=== PATIENT | male | born 1955 | race Caucasian/White ===

== ENCOUNTER 2021-12-16 05:14 | Day surgery (SDC) | payer OTHER ==
[~2021-12-16] VITALS: Ht 172.7 cm; Wt 88.6 kg
[2021-12-16] MEDS ORDERED: LIDOCAINE 4% 50 ML SOLUTION TP ONE (05:15)
[2021-12-16] MEDS ORDERED: LIDOCAINE 2% 5 ML JELLY TP ONE (05:15)
[2021-12-16] MEDS ORDERED: BENZOCAINE 20% 50 MCG/SPRAY 57 GM TP ONE (05:15)
[2021-12-16] MEDS ORDERED: ALBUTEROL SULFATE 2.5 MG/0.5 ML NEB SOLUTION NEB ONE (05:15)
[2021-12-16] MEDS ORDERED: SODIUM CHLORIDE 0.9% 500 ML IV ONE (06:30)
[2021-12-16 06:44] LABS: COVID AG,FIA SOURCE NASAL SWAB
[2021-12-16] MEDS ORDERED: SODIUM CHLORIDE 0.9% 1,000 ML ONE (06:52)
[2021-12-16] MEDS ORDERED: FentaNYL CITRATE PF 100 MCG/2 ML VIAL ONE (07:12)
[2021-12-16] MEDS ORDERED: MIDAZOLAM HCL 5 MG/ML VIAL ONE (07:12)
[2021-12-16] MEDS ORDERED: SODIUM CHLORIDE 0.9% 1,000 ML IV ONE (07:30)
[2021-12-16] MEDS ORDERED: MethylPREDNISolone SOD SUCC 125 MG/2 ML VIAL IVP ONE (09:15)
== END 2021-12-16 12:35 | disposition home or self-care (01) ==
LOC: SURGERY 05:14
PROVIDERS: ATTEND Internal Medicine Critical Care Medicine
DX: J38.4 Edema of larynx (principal); B37.0 Candidal stomatitis; Z79.899 Other long term (current) drug therapy; Z98.890 Other specified postprocedural states; F12.90 Cannabis use, unspecified, uncomplicated; G47.30 Sleep apnea, unspecified; Z96.649 Presence of unspecified artificial hip joint
CPT/HCPCS: 31623; 31624; 71045; 87015; 87070; 87101; 87206; 87220; 87426; 88112; 88184; 88185; 88312; C9803; J2250; J2930; J3010; J7030; J7613; Z7610